=== PATIENT | male | born 1990 | race American Indian/Alaskan Native ===

== ENCOUNTER 2020-10-03 08:47 | Day surgery (SDC) | payer MEDICARE, MEDICAID ==
[2020-10-01 15:16] VITALS: BMI 48.7
[2020-10-03] MEDS ORDERED: Bupivacaine 0.25% HCL 30 ML VIAL ONE (09:51)
[2020-10-03 09:56] LABS: #Basophils 0.1 thou/uL (0.0-0.2); #Eosinphils 0.2 thou/uL (0.0-0.7); #Lymphocytes 2.1 thou/uL (1.20-3.40); #Neutrophils 6.2 thou/uL (1.40-6.50); %Basophils 0.9 % (0.0-1.0); %Eosinophils 1.7 % (0.0-10.0); %Lymphocytes 22.3 % (21.0-51.0); %Monocytes 10.3 % (0.0-10.0); %Neutrophils 64.9 % (42.0-75.0); Hemoglobin 15.5 g/dL (14.0-18.0); Mean Corpuscular HGB CONC 32.8 g/dL (32.0-36.0); Mean Corpuscular Hemoglobin 30.1 pg (27.0-31.0); Mean Corpuscular Volume 91.8 fL (78.0-98.0); Mean Platelet Volume 7.5 fL (7.4-10.4); Platelet Count 333 thou/uL (130-400); RBC Distribution Width 12.4 % (11.5-14.5); Red Blood Cell (RBC) Count 5.15 mill/uL (4.70-6.10); White Blood Cell (WBC) Count 9.5 thou/uL (4.8-10.8)
[2020-10-03] MEDS ORDERED: Meperidine HCl/PF 25 MG/ML VIAL ONE (10:00)
[2020-10-03] MEDS ORDERED: Famotidine/PF 20 mg/2ml Vial ONE (10:00)
[2020-10-03] MEDS ORDERED: Fentanyl 100 MCG/2 ML VIAL ONE (10:00)
[2020-10-03] MEDS ORDERED: Ondansetron PF 4 MG/2 ML Vial ONE (10:08)
[2020-10-03] MEDS ORDERED: Ketorolac Tromethamine 30 MG/ML VIAL ONE (10:08)
[2020-10-03] MEDS ORDERED: Metoclopramide HCl 10 MG/2 ML VIAL ONE (10:08)
[2020-10-03] MEDS ORDERED: PROPOFOL 200 MG/20 ML VIAL ONE (10:08)
[2020-10-03] MEDS ORDERED: Succinylcholine 200 MG/10 ml SYRINGE FS ONE (10:08)
[2020-10-03] MEDS ORDERED: Lidocaine 1% PF 5 ML VIAL ONE (10:08)
[2020-10-03] MEDS ORDERED: Dexamethasone 20 MG/5 ML VIAL ONE (10:08)
[2020-10-03 10:17] LABS: Anion Gap 12 mmol/L (10-20); BUN (Urea Nitrogen) 13 mg/dL (8.9-20.6); Calc. Creatinine Clearance 206 mL/min (70-130); Calcium 9.1 mg/dL (7.8-10.44); Carbon Dioxide 27 mmol/L (22-29); Chloride 106 mmol/L (98-107); Glucose 89 mg/dL (70-105); Potassium 4.3 mmol/L (3.5-5.1); Sodium 141 mmol/L (136-145)
[2020-10-03 10:20] LABS: PTT 31.1 sec (22.9-36.1); Prothrombin Time 13.2 sec (12.0-14.7)
[2020-10-03 10:30] LABS: SARS-CoV-2 NAA Rapid Test Not Detected (NotDetected)
[2020-10-03] MEDS ORDERED: Bacitracin Zinc Ointment 30 gm TUBE ONE (11:05)
--- NOTE | 2020-10-03 16:02 | OP ---
DATE OF PROCEDURE: 10/03/2020 PREOPERATIVE DIAGNOSIS: Phimosis. POSTOPERATIVE DIAGNOSIS: Phimosis. PROCEDURE PERFORMED: Circumcision. ANESTHESIA: General. COMPLICATIONS: None. ESTIMATED BLOOD LOSS: Minimal. SPECIMEN: Foreskin. DESCRIPTION OF PROCEDURE: After informed consent, the patient was taken to the operating room, transferred to the table under his own power. Anesthesia was established. Time-out was performed, showing the correct patient, site, and procedure. He was prepped and draped in the supine position. I began by performing a dorsal nerve block and ring block utilizing a total of 30 mL 0.25% Marcaine without epinephrine. I then retracted his foreskin and marked the distal and proximal collars. I did take the frenulum down somewhat using electrocautery. The collars were then incised with electrocautery and the intervening skin removed. Meticulous hemostasis was achieved with electrocautery and then the skin edges reapproximated in an interrupted fashion using 3-0 chromic suture. I then placed a dressing of antibiotic ointment, Telfa, 4 x 4, Coban. He was awoken from anesthesia, transferred back to his hospital bed and taken to PACU in stable condition, where he was discharged home upon recovery. Job ID: [id number]
== END 2020-10-03 13:45 | disposition home or self-care (01) ==
LOC: SDC 08:47
PROVIDERS: ATTEND Urology
PROC: 0VTTXZZ Resection of Prepuce, External Approach (ICD-10-PCS; principal; 2020-10-03)
DX: N47.1 Phimosis (principal); E66.01 Morbid (severe) obesity due to excess calories; Z68.42 Body mass index [BMI] 45.0-49.9, adult; Z87.891 Personal history of nicotine dependence; Z20.822 Contact with and (suspected) exposure to COVID-19
CPT/HCPCS: 54161; 80048; 85025; 85610; 85730; 88304; U0002; J0690; J1100; J1885; J2175; J2405; J2704; J2765; J3010; S0020; S0028

== ENCOUNTER 2021-03-06 15:27 | Emergency (ER) | payer MEDICARE, MEDICAID | END 2021-03-06 17:58 | LOC: ERS 15:27 | DX: Z53.21 Procedure and treatment not carried out due to patient leaving prior to being seen by health care provider (principal) ==